=== PATIENT | female | born 2000 ===

== ENCOUNTER 2025-08-13 16:00 | Outpatient (CLI) | payer OTHER, SELFPAY ==
[2025-08-15 21:33] LABS: HPV Source Cervix
[2025-08-17 09:59] LABS: Pap Test Digital Imaging Done
== END 2025-08-13 16:01 | disposition home or self-care (01) ==
PROVIDERS: Visit Provider Physician Assistant
DX: Z12.4 Encounter for screening for malignant neoplasm of cervix (principal)
CPT/HCPCS: 87624; 87625; 88141; 88142; 88175